=== PATIENT | female | born 1985 | race Caucasian/White ===

== ENCOUNTER 2022-01-21 09:38 | Outpatient (CLI) | payer BC, SELFPAY ==
[2022-01-21 12:17] LABS: Cholesterol* 162 mg/dL (90-199); Glucose* 95 mg/dL (60-115)
[2022-01-21 12:18] LABS: HDL Cholesterol* 73 mg/dL (>=50); LDL Cholesterol Calculated 81 mg/dL (<100); Triglycerides* 42 mg/dL (40-149)
[2022-01-22 12:36] LABS: Iron* 33 ug/dL (37-170)
[2022-01-22 12:45] LABS: Percent Iron Saturation 8 % (20-50); Total Iron Binding Capacity 438 ug/dL (265-497)
[2022-01-22 13:12] LABS: Ferritin* 5.1 ng/mL (6.24-137.0)
== END 2022-01-21 09:39 | disposition home or self-care (01) ==
PROVIDERS: PCP Family Medicine; Visit Provider Registered Nurse
DX: Z01.419 Encounter for gynecological examination (general) (routine) without abnormal findings (principal); N92.0 Excessive and frequent menstruation with regular cycle; E66.9 Obesity, unspecified; Z13.6 Encounter for screening for cardiovascular disorders; Z13.1 Encounter for screening for diabetes mellitus
CPT/HCPCS: 80061; 82728; 82947; 83540; 83550; 84443

== ENCOUNTER 2022-01-23 15:44 | Outpatient (CLI) | payer BC, SELFPAY ==
--- NOTE | 2022-01-23 16:00 | CRLHL7_ITS ---
For Patients: As a result of the Century Cures Act, medical imaging exams and procedure reports are released immediately into your electronic medical record. You may view this report before your referring provider. If you have questions, please contact your health care provider. INDICATION: menorrhagia COMPARISON: none TECHNIQUE: 2D zayas scale and color Doppler images were acquired of the pelvis using a transabdominal and transvaginal approach. FINDINGS: Sonographic images demonstrate a normal size and smooth outer contour of the uterus. Uterus measures 9.4 cm in length by 5.5 cm in AP diameter by 5.8 cm in transverse dimension. The myometrium has a heterogeneous echotexture. The endometrial lining appears heterogeneous and measures 19 mm in composite thickness. The right ovary measures 3.2 x 2.0 x 2.4 cm in size and the left ovary measures 3.6 x 1.4 x 1.2 cm. The ovaries demonstrate normal arterial and venous blood flow on color Doppler analysis. There are no suspicious fluid collections within the cul-de-sac. IMPRESSION: Heterogeneous endometrium measuring 19 millimeters. Dictated by Nomi Elam MD @ 01/26/2022 9:20:13 AM (Electronically Signed)
== END 2022-01-23 15:45 | disposition home or self-care (01) ==
LOC: US 15:44
PROVIDERS: PCP Family Medicine; Visit Provider Registered Nurse
DX: N92.0 Excessive and frequent menstruation with regular cycle (principal)
CPT/HCPCS: 76830; 76856

== ENCOUNTER 2022-02-18 11:41 | Day surgery (SDC) | payer BC, SELFPAY ==
[2022-02-18 11:57] VITALS: BMI 31.9
[2022-02-18 12:00] VITALS: BP 120/78; PULSE 59; RESP 14; TEMP 36.9; O2SAT 100
[2022-02-18] MEDS: LACTATED RINGERS 1000 ML 1,000 ML 100 ML IV (12:00)
[2022-02-18 12:03] LABS: HCG Qualitative* Negative (Negative)
[2022-02-18 12:13] LABS: Hemoglobin* 11.8 gm/dL (12.0-16.0)
[2022-02-18] MEDS: BUPIVACAINE 0.5% 30 ML 8 ML INJECTION (14:03)
--- NOTE | 2022-02-18 14:10 | W.PM.GYNPROC ---
Procedure Note Date Seen: 02/18/22 Procedure Details: Preop diagnosis:?Abnormal uterine bleeding Postop diagnosis:? Abnormal uterine bleeding Name of procedure:? Hysteroscopy, dilation and curettage, placement of Mirena IUD Surgeon: Ismael Franco MD Manager Consumer:? None Complications: None EBL:? 5 mL Drains:? None Findings:? Bimanual exam: Retroverted uterus of about 8cm, regular contour, no adnexal masses. Intrauterine cavity:?Retroverted, retroflexed uterus. Uterine sound 8cm. Bilateral cornual openings seen, polypoid lesion seen at the fundal and anterior wall area of the uterus. Patient was taken to the OR were MAC anesthesia was administered without difficulty. She was placed in the dorsal lithotomy position with Trev type stirrups.? An exam under anesthesia as described above.? Patient was then prepared and draped in the normal sterile fashion. A bivalved speculum was inserted in the posterior aspect of the vagina. 0.25% Bupivacaine was injected at 2 and 11 o'clock a total of about 8mL utilized.? A single-tooth tenaculum was used to grasp the anterior lip of the cervix. I was able to sound the uterus only to 5cm. The cervical os was sequentially dilated to accommodate the 5 mm TrueClear hysteroscope using Hegar dilators.? A 5 mm 30 degree TrueClear hysteroscope was introduced under direct visualization, and the uterus was distended with normal saline. I was able to guide myself with direct visualization and that way enter the uterine cavity per se.Findings as above. Soft tissue incisor blade from TrueClear hysteroscope system was introduced under direct visualization and endometrial curettings performed with removal of polypoid lesions. Hysteroscope removed under direct visualization.?Uterus was sound to 8cm. Mirena IUD was loaded and placed w/o difficulty. IUD strings cut and length of about 3-4cm. Tenaculum was removed from the cervix and good hemostasis was noted at puncture sites.? Patient tolerated the procedure well.? Instrument and sponge counts were correct x2.? The patient was awakened from MAC anesthesia and taken to the recovery room in a stable condition. The patient will go home after recovering from anesthesia and meeting all the criteria for discharge. She was given instruction regarding follow-up visit in 2 weeks at [facility] and instructions for pain medication. Fluid deficit: 215mL
[2022-02-18 14:15] VITALS: BP 104/72; PULSE 52; RESP 14; TEMP 36.8; O2SAT 97
--- NOTE | 2022-02-18 14:15 | W.ANESCHARGE ---
Anesthesia Charges Start Date/Time Anesthesia Start Date: 02/18/22 Anesthesia Start Time: 13:23 Stop Date/Time Anesthesia Stop Date: 02/18/22 Anesthesia Stop Time: 14:16 Summary Emergency: No
[2022-02-18 14:39] VITALS: BP 107/76; PULSE 55; RESP 14; O2SAT 99
== END 2022-02-18 14:46 | disposition home or self-care (01) ==
PROVIDERS: Nurse Anesthetist, Certified Registered; PCP Family Medicine; Visit Provider Obstetrics & Gynecology
PROC: 0UDB8ZZ Extraction of Endometrium, Via Natural or Artificial Opening Endoscopic (ICD-10-PCS; CPT 58558; principal; 2022-02-18 13:15)
DX: N93.8 Other specified abnormal uterine and vaginal bleeding (principal); N84.0 Polyp of corpus uteri; Z30.430 Encounter for insertion of intrauterine contraceptive device
CPT/HCPCS: 58558; 58300; 00952; 36415; 81025; 84703; 85018; 88305; J1100; J2250; J2405; J2704; J3010; J3490; J7120; J7298

== ENCOUNTER 2024-08-01 12:31 | Outpatient (CLI) | payer BC, SELFPAY ==
[2024-08-03 04:45] LABS: HPV Source Cervix; HPV, High Risk by TMA Detected
[2024-08-03 17:04] LABS: HPV Genotype 16 by TMA Not Detected; HPV Genotype 18/45 by TMA Not Detected; HPVG Source Cervix
[2024-08-10 15:05] LABS: Pap Test Reviewed by Path Done
== END 2024-08-01 12:32 | disposition home or self-care (01) ==
PROVIDERS: PCP Family Medicine; Visit Provider Registered Nurse
DX: Z12.4 Encounter for screening for malignant neoplasm of cervix (principal); Z11.51 Encounter for screening for human papillomavirus (HPV)
CPT/HCPCS: 87624; 87625; 88141; 88142